=== PATIENT | male | born 1960 | race Caucasian/White ===

== ENCOUNTER 2017-11-12 17:56 | Emergency (ER) | payer OTHER ==
[~2017-11-12] VITALS: Ht 172.7 cm; Wt 101.0 kg
[2017-11-12 17:58] VITALS: BP 143/78
[2017-11-12 18:34] LABS: MICROSCOPIC NOT IND
[2017-11-12 18:55] LABS: CULTURE INDICATED? NO
== END 2017-11-12 21:05 | disposition home or self-care (01) ==
LOC: ED 20:59
DX: S39.94XA Unspecified injury of external genitals, initial encounter (principal); E11.9 Type 2 diabetes mellitus without complications; X58.XXXA Exposure to other specified factors, initial encounter; Y93.89 Activity, other specified; Y92.89 Other specified places as the place of occurrence of the external cause; Y99.8 Other external cause status
CPT/HCPCS: 76870; 81003; 99285

== ENCOUNTER → 2020-12-20 | Outpatient (CLI) | payer BC | END | disposition home or self-care (01) | LOC: CFH 07:05 | PROVIDERS: ATTEND Internal Medicine Cardiovascular Disease | DX: I11.9 Hypertensive heart disease without heart failure (principal); R06.02 Shortness of breath | CPT/HCPCS: 78452; 93017; 93306; 93356; A9502 ==

== ENCOUNTER → 2021-02-18 | Outpatient (CLI) | payer BC | END | disposition home or self-care (01) | LOC: CFH 13:49 | PROVIDERS: ATTEND Nurse Practitioner Family | DX: R06.00 Dyspnea, unspecified (principal); I51.7 Cardiomegaly | CPT/HCPCS: 71250 ==

== ENCOUNTER → 2021-03-19 | Outpatient (CLI) | payer BC | END | disposition home or self-care (01) | LOC: CVU 06:54 | PROVIDERS: ATTEND Nurse Practitioner Family | DX: I36.1 Nonrheumatic tricuspid (valve) insufficiency (principal); R01.1 Cardiac murmur, unspecified; I11.9 Hypertensive heart disease without heart failure | CPT/HCPCS: 93306; 93356 ==